=== PATIENT | female | born 1950 | race Caucasian/White ===

== ENCOUNTER 2024-08-10 16:42 | Emergency (ER) | payer MEDICARE, OTHER, SELFPAY ==
[2024-08-10 17:00] VITALS: BP 169/91
--- NOTE | 2024-08-10 19:33 | ED.GENMED ---
History of Present Illness
General
Chief Complaint: Head Injury
Time Seen by Provider: 08/10/24 18:05
History of Present Illness
History of Present Illness:
74-year-old female presents to the emergency department for evaluation of a head injury after mechanical ground-level fall. Struck the right side of her head on the ground. She is on Xarelto. History of craniotomy due to a meningioma
Review of Systems
Review of Systems
Allergies reviewed?: Yes
All Other Systems: ROS reviewed and negative except as documented in HPI and ROS
Phy Exam
Physical Exam
Physical Exam:
GEN: Well appearing, NAD, WDWN
HEENT: Minor palpable hematoma of the right parietal scalp, no crepitus,Oral mucosa moist, no scleral icterus, no nasal congestion
Cardiac: Regular rate
Lung: No respiratory distress, no tachypnea
MSK: No gross deformity or injuries
Skin: Good color, no pallor or jaundice, no rashes
Neuro: AO x3; CN II-XII grossly intact. BUE strength 5/5 in all patton, sensation intact and symmetric. BLE strength 5/5 in all patton, sensation intact and symmetric
Psych: Calm, cooperative
Course
Orders/Labs/Results
Orders:
Orders
08/10/24 16:44
CT Head W/o Iv Contrast Urgent
Comment:
Reason For Exam: fall
Vital Signs
Initial and Last Documented VS:
Initial Vital Signs
Temp Pulse Resp BP Pulse Ox
98 F 65 16 169/91 99
08/10/24 17:00 08/10/24 17:00 08/10/24 17:00 08/10/24 17:00 08/10/24 17:00
Last Documented Vital Signs
Temp Pulse Resp BP Pulse Ox
98 F 65 16 169/91 99
08/10/24 17:00 08/10/24 17:00 08/10/24 17:00 08/10/24 17:00 08/10/24 17:00
MDM/Problems Addressed
MDM/Problems Addressed:
CT of the head is negative for acute injuries. Patient made aware of the findings suggesting recurrent meningiomas and recommend outpatient MRI for further clarification
*Critical Care Note
Total Time (30-74mins, 75-104mins- exclusive of procedures): Not Applicable
ED Attending Note
-
Portions of this chart may have been created with voice recognition software.� Occasional wrong word or��sound alike� substitutions may have occurred due to the inherent limitations of voice recognition software.
Discharge Plan
Departure
Patient Disposition: Home (Routine Discharge)
Date of Disposition: 08/10/24
Time of Disposition: 19:33
Patient with high blood pressure during this ER visit?: No
Discharge Problem:
Closed head injury
Instructions: Head Injury in Adults (DC)
Referrals:
Angelica Leon MD [Family Provider] -
Activity Restrictions/Additional Instructions:
Your CT scan did show possible small meningiomas. Please discuss with your primary doctor regarding comparison to past images and any need for future MRI
Interventions
Interventions:
*Risk Screen - Suicide Last Done: 08/10/24 17:04
*General Assessment Last Done: 08/10/24 19:40
*Neglect/Abuse Screening Last Done: 08/10/24 17:04
ED- Fall Risk Assessment Last Done: 08/10/24 19:40
*ED COVID-19 Vaccine History Last Done: 08/10/24 19:00
*Nursing Disposition Last Done: 08/10/24 19:40
ED- Neurological Assessment Last Done: 08/10/24 19:00
ED-Skin Assessment Last Done: 08/10/24 19:36
Discharge Date and Time
Discharge Date/Time: 08/10/24 19:41
Print Language: SLOVENIAN
== END 2024-08-10 19:41 | disposition home or self-care (01) ==
LOC: EMR 16:42
PROVIDERS: EMERGENCY PHYSICIAN Student in an Organized Health Care Education/Training Program; FAMILY PHYSICIAN Internal Medicine
DX: S09.90XA Unspecified injury of head, initial encounter (principal); W18.30XA Fall on same level, unspecified, initial encounter; R93.0 Abnormal findings on diagnostic imaging of skull and head, not elsewhere classified; Z86.011 Personal history of benign neoplasm of the brain; Z79.01 Long term (current) use of anticoagulants
CPT/HCPCS: 99284; 70450